=== PATIENT | female | born 1935 | race Caucasian/White ===

== ENCOUNTER 2019-08-08 15:47 | Inpatient (IN) | payer MEDICARE, OTHER ==
[~2019-08-08] VITALS: Ht 157.5 cm; Wt 65.6 kg
--- NOTE | 2019-08-08 15:58 | NUR ---
PT BIB [facility] FOR CHEST PRESSURE PROGRESSIVELY WORSENING OVER THE PAST WEEK. PT NOTICED IT WAS SIGNIFICANTLY WORSE YESTERDAY. PT WAS IN RAPID AFIB WITH A RATE OF 140S ON ARRIVAL, CONVERTED BACK TO A SINUS RHYTHM IN THE 80S AT 1550. PT CHANGED INTO GOWN, P/W/D, RESP WNL, CALL LIGHT IN LAP, NAD, DENIES ADDITIONAL NEEDS AT THIS TIME. WCTM.
--- NOTE | 2019-08-08 15:59 | NUR ---
PT ON MONITOR, CONVERSING WITH RN IN FULL SENTENCES NO SOB NOTED.
[2019-08-08] MEDS ORDERED: HYDR12.517 PO (16:04)
[2019-08-08] MEDS ORDERED: GLIPIZIDE PO (16:04)
[2019-08-08] MEDS ORDERED: ATEN50TA41 PO (16:04)
[2019-08-08 16:22] LABS: BASOPHILS # (AUTO) 0.02 x10^3/uL (0-0.1); BASOPHILS % (AUTO) 0 % (0-1); EOSINOPHILS % (AUTO) 1 % (1-7); LYMPHOCYTES # (AUTO) 1.39 x10^3/uL (1-3.4); LYMPHOCYTES % (AUTO) 16 % (22-44); MD NO; MEAN CORPUSCULAR HEMOGLOBIN 29.6 pg (27.0-34.8); MEAN CORPUSCULAR HGB CONC 33.8 g/dL (32.4-35.8); MEAN CORPUSCULAR VOLUME 87.8 fL (80-100); MEAN PLATELET VOLUME 8.2 fL (7.4-10.4); MONOCYTES # (AUTO) 0.75 x10^3/uL (0.2-0.8); MONOCYTES % (AUTO) 8 % (2-9); NEUTROPHILS # (AUTO) 6.69 x10^3/uL (1.8-6.8); NEUTROPHILS % (AUTO) 75 % (42-75); PLATELET COUNT 180 x10^3/uL (130-400); RED BLOOD COUNT 5.09 x10^6/uL (3.82-5.3); RED CELL DISTRIBUTION WIDTH 13.6 % (9.6-15.2)
[2019-08-08 16:34] LABS: ALBUMIN 3.5 g/dL (3.4-5.0); ANION GAP 9 mmol/L (5-15); CALCIUM 9.5 mg/dL (8.5-10.1); CHLORIDE 103 mmol/L (98-107); CREATININE 0.98 mg/dL (0.55-1.02)
[2019-08-08 16:49] LABS: TROPONIN I 0.381 ng/mL (0.000-0.045)
[2019-08-08] MEDS ORDERED: METOPROLOL TARTRATE 50 MG TAB ONE (17:25)
[2019-08-08] MEDS ORDERED: SODIUM CHLORIDE FLUSH 10ML SYR IVF ONE (17:30)
[2019-08-08] MEDS ORDERED: METOPROLOL TARTRATE 50 MG TAB PO ONE (17:30)
[2019-08-08] MEDS ORDERED: ENOXAPARIN 60 MG/0.6 ML SQ ONE (18:00)
[2019-08-08] MEDS ORDERED: ENOXAPARIN 60 MG/0.6 ML ONE (18:30)
[2019-08-08] MEDS ORDERED: DILTIAZEM 5 MG/ML, 5ML IVPush PRN (20:00)
[2019-08-08] MEDS ORDERED: ACETAMINOPHEN 325 MG TABLET PO PRN (20:00)
[2019-08-08] MEDS ORDERED: TRAZODONE 50MG TABLET PO PRN (20:00)
[2019-08-08] MEDS ORDERED: NITROGLYCERIN 0.4 MG BOTTLE (25 TABS) SL PRN (20:00)
[2019-08-08] MEDS ORDERED: LABETALOL 5MG/ML, 20ML IVPush PRN (20:00)
[2019-08-08] MEDS ORDERED: ONDANSETRON 2MG/ML, 2ML IVPush PRN (20:00)
[2019-08-08] MEDS ORDERED: morphine SULFATE 10 MG/ML, 1ML IV PRN (20:00)
[2019-08-08 20:05] VITALS: BP 130/71
[2019-08-08] MEDS ORDERED: ENOXAPARIN 60 MG/0.6 ML SQ SCH (20:30)
[2019-08-08] MEDS: INSULIN LISPRO 100 UNITS/ML, PEN SQ-INSULIN SCH (21:00)
[2019-08-08] MEDS: ATORVASTATIN 40 MG TABLET PO SCH (21:54)
[2019-08-08] MEDS ORDERED: MAGNESIUM SULFATE PMX 2GM/50ML 50 ML IV ONE (22:00)
[2019-08-08 22:28] VITALS: BP 130/71
[2019-08-09 00:18] VITALS: BP 155/66
[2019-08-09 05:57] LABS: BASOPHILS # (AUTO) 0.05 x10^3/uL (0-0.1); BASOPHILS % (AUTO) 1 % (0-1); EOSINOPHILS # (AUTO) 0.14 x10^3/uL (0-0.4); EOSINOPHILS % (AUTO) 2 % (1-7); LYMPHOCYTES # (AUTO) 1.82 x10^3/uL (1-3.4); LYMPHOCYTES % (AUTO) 22 % (22-44); MD NO; MEAN CORPUSCULAR HEMOGLOBIN 29.6 pg (27.0-34.8); MEAN CORPUSCULAR HGB CONC 33.5 g/dL (32.4-35.8); MEAN CORPUSCULAR VOLUME 88.2 fL (80-100); MEAN PLATELET VOLUME 8.3 fL (7.4-10.4); MONOCYTES # (AUTO) 0.87 x10^3/uL (0.2-0.8); MONOCYTES % (AUTO) 10 % (2-9); NEUTROPHILS % (AUTO) 66 % (42-75); PLATELET COUNT 170 x10^3/uL (130-400); RED CELL DISTRIBUTION WIDTH 14.2 % (9.6-15.2)
[2019-08-09] MEDS ORDERED: Enoxaparin 1 mg/kg protocol SQ SCH (06:00)
[2019-08-09] MEDS ORDERED: METOPROLOL TARTRATE 50 MG TAB PO SCH (06:00)
[2019-08-09 06:04] LABS: CHLORIDE 105 mmol/L (98-107)
[2019-08-09 06:13] LABS: ANION GAP 6 mmol/L (5-15); CALCIUM 9.1 mg/dL (8.5-10.1); CHOL/HDL RATIO 3.2; CHOLESTEROL, TOTAL 143 mg/dL (140-239); CREATININE 0.79 mg/dL (0.55-1.02); HDL CHOL % 31 % (28-40); HDL CHOLESTEROL (DIRECT) 45 mg/dL (40-60); LDL CHOLESTEROL,CALCULATED 51 mg/dL (54-169); LDL/HDL RATIO 1.1 (0.5-3.0); TRIGLYCERIDES 234 mg/dL (50-200); VLDL CHOLESTEROL 47 mg/dL (0-25)
[2019-08-09] MEDS: ASPIRIN 325 MG TABLET EC PO SCH (06:50)
[2019-08-09] MEDS: INSULIN LISPRO 100 UNITS/ML, PEN SQ-INSULIN SCH ×4 (07:00→21:00)
[2019-08-09 08:45] VITALS: BP 165/74
[2019-08-09] MEDS: ENOXAPARIN 60 MG/0.6 ML SQ SCH ×2 (08:46→21:00)
[2019-08-09 15:59] VITALS: BP 131/63
[2019-08-09] MEDS: METOPROLOL TARTRATE 50 MG TAB PO SCH (17:41)
[2019-08-09 20:02] VITALS: BP 150/75
[2019-08-09] MEDS: ATORVASTATIN 40 MG TABLET PO SCH (21:16)
[2019-08-10 02:05] VITALS: BP 151/70
[2019-08-10] MEDS: ASPIRIN 325 MG TABLET EC PO SCH (05:44)
[2019-08-10] MEDS: METOPROLOL TARTRATE 50 MG TAB PO SCH ×2 (05:44→18:00)
[2019-08-10] MEDS ORDERED: SODIUM CHLORIDE 0.9% 1,000 ML IV SCH (06:00)
[2019-08-10] MEDS: INSULIN LISPRO 100 UNITS/ML, PEN SQ-INSULIN SCH ×4 (07:00→20:38)
[2019-08-10 07:37] VITALS: BP 168/69
[2019-08-10] MEDS ORDERED: REGADENOSON 0.4 MG/5 ML SYRINGE ONE (08:33)
[2019-08-10] MEDS: ENOXAPARIN 60 MG/0.6 ML SQ SCH (11:08)
[2019-08-10 13:31] VITALS: BP 128/72
[2019-08-10 20:29] VITALS: BP 140/70
[2019-08-10] MEDS: ATORVASTATIN 40 MG TABLET PO SCH (20:37)
[2019-08-11] VITALS (7 sets, daily range): BP systolic 144–227; BP diastolic 69–111
[2019-08-11] MEDS: METOPROLOL TARTRATE 50 MG TAB PO SCH ×2 (05:47→18:13)
[2019-08-11] MEDS: INSULIN LISPRO 100 UNITS/ML, PEN SQ-INSULIN SCH ×4 (07:00→18:52)
[2019-08-11] MEDS: ASPIRIN 325 MG TABLET EC PO SCH (08:40)
[2019-08-11] MEDS ORDERED: VERAPAMIL 2.5 MG/ML, 2ML ONE (15:26)
[2019-08-11] MEDS ORDERED: HEPARIN 1,000 UNITS/ML, 10ML ONE (15:26)
[2019-08-11] MEDS ORDERED: FENTANYL PF 100 MCG/2ML ONE (15:26)
[2019-08-11] MEDS ORDERED: MIDAZOLAM 1 MG/ML, 5ML ONE (15:26)
[2019-08-11] MEDS ORDERED: BIVALIRUDIN 250 MG ONE (15:26)
[2019-08-11] MEDS ORDERED: TICAGRELOR 90 MG TABLET ONE (15:26)
[2019-08-11] MEDS ORDERED: LIDOCAINE-MPF 1%, 5ML ONE (15:26)
[2019-08-11] MEDS ORDERED: hydrALAzine 20 MG/ML, 1ML IV ONE (19:30)
[2019-08-11] MEDS ORDERED: BUTALB/APAP/CAFFEINE 50MG/325MG/40MG PO PRN (21:00)
[2019-08-11] MEDS ORDERED: hydrALAzine 20 MG/ML, 1ML IV PRN (22:30)
[2019-08-11] MEDS ORDERED: PROMETHAZINE 25 MG/ML, 1ML IM PRN (22:30)
[2019-08-11] MEDS: TICAGRELOR 90 MG TABLET PO SCH (23:37)
[2019-08-11] MEDS: ATORVASTATIN 40 MG TABLET PO SCH (23:37)
[2019-08-12 00:46] VITALS: BP 160/81
[2019-08-12 03:56] VITALS: BP 107/73
[2019-08-12] MEDS ORDERED: ASPIRIN 81 MG TABLET EC PO SCH (06:00)
[2019-08-12 06:02] LABS: ALBUMIN 3.5 g/dL (3.4-5.0); ANION GAP 9 mmol/L (5-15); CALCIUM 9.2 mg/dL (8.5-10.1); CHLORIDE 104 mmol/L (98-107)
[2019-08-12 06:05] LABS: ALANINE AMINOTRANSFERASE 78 U/L (12-78); ALKALINE PHOSPHATASE 79 U/L (45-117); BILIRUBIN,TOTAL 0.7 mg/dL (0.2-1.0); CREATININE 0.85 mg/dL (0.55-1.02); MEAN CORPUSCULAR HEMOGLOBIN 29.7 pg (27.0-34.8); MEAN CORPUSCULAR HGB CONC 33.9 g/dL (32.4-35.8); MEAN CORPUSCULAR VOLUME 87.6 fL (80-100); MEAN PLATELET VOLUME 8.3 fL (7.4-10.4); PLATELET COUNT 172 x10^3/uL (130-400); RED BLOOD COUNT 4.98 x10^6/uL (3.82-5.3); RED CELL DISTRIBUTION WIDTH 14.2 % (9.6-15.2); TOTAL PROTEIN 7.6 g/dL (6.4-8.2)
[2019-08-12 06:34] LABS: BASOPHILS # (AUTO) 0.02 x10^3/uL (0-0.1); BASOPHILS % (AUTO) 0 % (0-1); EOSINOPHILS % (AUTO) 0 % (1-7); LYMPHOCYTES # (AUTO) 0.52 x10^3/uL (1-3.4); LYMPHOCYTES % (AUTO) 5 % (22-44); MD SCAN; MONOCYTES # (AUTO) 0.24 x10^3/uL (0.2-0.8); MONOCYTES % (AUTO) 2 % (2-9); NEUTROPHILS # (AUTO) 10.24 x10^3/uL (1.8-6.8); NEUTROPHILS % (AUTO) 93 % (42-75)
[2019-08-12 07:01] VITALS: BP 149/73
[2019-08-12] MEDS: INSULIN LISPRO 100 UNITS/ML, PEN SQ-INSULIN SCH (09:26)
[2019-08-12] MEDS: METOPROLOL TARTRATE 50 MG TAB PO SCH (09:26)
[2019-08-12] MEDS: TICAGRELOR 90 MG TABLET PO SCH (09:26)
[2019-08-12] MEDS ORDERED: ASPI81TA45 PO (12:21)
[2019-08-12] MEDS ORDERED: TICA90TA PO (12:21)
[2019-08-12] MEDS ORDERED: ATOR40TA78 PO (13:11)
== END 2019-08-12 14:05 | disposition home or self-care (01) | DRG 247 ==
LOC: ED 17:38 → EDIP 17:53 → 5SO 20:06
PROVIDERS: ADMIT Family Medicine; ATTEND Family Medicine
PROC: 027034Z Dilation of Coronary Artery, One Artery with Drug-eluting Intraluminal Device, Percutaneous Approach (ICD-10-PCS; principal; 2019-08-11)
PROC: 4A023N7 Measurement of Cardiac Sampling and Pressure, Left Heart, Percutaneous Approach (ICD-10-PCS; 2019-08-11)
PROC: B2111ZZ Fluoroscopy of Multiple Coronary Arteries using Low Osmolar Contrast (ICD-10-PCS; 2019-08-11)
PROC: B2151ZZ Fluoroscopy of Left Heart using Low Osmolar Contrast (ICD-10-PCS; 2019-08-11)
DX: I21.4 Non-ST elevation (NSTEMI) myocardial infarction (principal); D68.69 Other thrombophilia; I50.30 Unspecified diastolic (congestive) heart failure; I11.0 Hypertensive heart disease with heart failure; E11.9 Type 2 diabetes mellitus without complications; E78.5 Hyperlipidemia, unspecified; I48.0 Paroxysmal atrial fibrillation; I44.7 Left bundle-branch block, unspecified; I25.110 Atherosclerotic heart disease of native coronary artery with unstable angina pectoris; K21.9 Gastro-esophageal reflux disease without esophagitis; Z87.891 Personal history of nicotine dependence; Z79.899 Other long term (current) drug therapy; Z79.84 Long term (current) use of oral hypoglycemic drugs; Z85.820 Personal history of malignant melanoma of skin
CPT/HCPCS: 36415; 71045; 78452; 80048; 80053; 80061; 82040; 82962; 83036; 83735; 84100; 84439; 84443; 84481; 84484; 85025; 93005; 93017; 93306; 93458; 96372; 96374; 99156; 99157; C1769; C9600; G0378; J0583; J1644; J1650; J2250; J2405; J2550; J2785; J3010; A9502; C1725; C1874; C1887; J0360; J1815; J3475; Q9967

== ENCOUNTER 2019-10-26 10:55 | Emergency (ER) | payer MEDICARE, OTHER ==
[~2019-10-26] VITALS: Ht 157.5 cm; Wt 60.7 kg
[~2019-10-26 10:55] MED LIST: ASPI81TA45 PO; ATEN50TA41 PO; ATOR40TA78 PO; GLIPIZIDE PO; HYDR12.517 PO; TICA90TA PO
--- NOTE | 2019-10-26 11:50 | NUR ---
PT C/O BLOOD IN STOOL x1 "half a cup" THIS AM. PT ON ELIQUIS AND BRILANTA NO ABD CRAMPING, NO HX OF SIMILIAR GOOD COLOR/VSS
--- NOTE | 2019-10-26 12:40 | NUR ---
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
[2019-10-26 12:50] LABS: BASOPHILS # (AUTO) 0.02 x10^3/uL (0-0.1); BASOPHILS % (AUTO) 0 % (0-1); EOSINOPHILS # (AUTO) 0.12 x10^3/uL (0-0.4); EOSINOPHILS % (AUTO) 1 % (1-7); LYMPHOCYTES % (AUTO) 12 % (22-44); MD NO; MEAN CORPUSCULAR HEMOGLOBIN 29.3 pg (27.0-34.8); MONOCYTES % (AUTO) 9 % (2-9); NEUTROPHILS # (AUTO) 7.08 x10^3/uL (1.8-6.8); NEUTROPHILS % (AUTO) 78 % (42-75); PLATELET COUNT 201 x10^3/uL (130-400); RED BLOOD COUNT 4.92 x10^6/uL (3.82-5.3); RED CELL DISTRIBUTION WIDTH 14.6 % (9.6-15.2)
[2019-10-26 12:59] LABS: ALANINE AMINOTRANSFERASE 31 U/L (12-78); ALBUMIN 3.5 g/dL (3.4-5.0); ANION GAP 6 mmol/L (5-15); CALCIUM 9.7 mg/dL (8.5-10.1); CHLORIDE 105 mmol/L (98-107); CREATININE 1.06 mg/dL (0.55-1.02)
[2019-10-26 13:01] LABS: ALKALINE PHOSPHATASE 91 U/L (45-117); BILIRUBIN,TOTAL 0.5 mg/dL (0.2-1.0); TOTAL PROTEIN 7.4 g/dL (6.4-8.2)
--- NOTE | 2019-10-26 13:03 | NUR ---
REPORT FROM KELTON BRITO. PT RECLINED IN BED WATCHING TELEVISION. NAD NOTED AT THIS TIME. RESPIRATIONS EVEN AND UNLABORED ON RA. PT DENIES PAIN AT THIS TIME. AWAITING REMAINDER OF LAB RESULTS.
--- NOTE | 2019-10-26 13:05 | NUR ---
Report to Myrna MELARA
[2019-10-26 13:06] LABS: INTERNATIONAL NORMALIZED RATIO 1.08 (0.93-1.1); PROTHROMBIN TIME 11.5 Seconds (9.6-11.5)
[2019-10-26] MEDS ORDERED: OMNIPAQUE 350 MG/ML, 100ML BOTTLE ONE (13:26)
--- NOTE | 2019-10-26 13:41 | NUR ---
ERMD IN TO DISCUSS DC WITH PT.
[2019-10-26 13:56] VITALS: BP 149/56
== END 2019-10-26 14:02 | disposition home or self-care (01) ==
LOC: ED 12:11
DX: K62.5 Hemorrhage of anus and rectum (principal); I48.91 Unspecified atrial fibrillation; Z87.891 Personal history of nicotine dependence
CPT/HCPCS: 36415; 74177; 80053; 85025; 85610; 99285; Q9967

== ENCOUNTER 2020-04-12 12:38 | Emergency (ER) | payer MEDICARE, OTHER ==
[~2020-04-12] VITALS: Ht 154.9 cm; Wt 61.5 kg
--- NOTE | 2020-04-12 12:46 | NUR ---
UNABLE TO GET TEMP IN TRIAGE, PT UNABLE TO HOLD BREATH WITH CLAMPED NOSE
[2020-04-12] MEDS ORDERED: TRANEXAMIC ACID 100 MG/ML, 10ML ONE (13:07)
[2020-04-12] MEDS ORDERED: OXYMETAZOLINE NASAL SPRAY 0.05%,30ML ONE (13:07)
[2020-04-12] MEDS ORDERED: TRANEXAMIC ACID 100 MG/ML, 10ML TP ONE (13:30)
[2020-04-12] MEDS ORDERED: OXYMETAZOLINE NASAL SPRAY 0.05%, 15ML NAS ONE (13:30)
[2020-04-12 14:56] VITALS: BP 155/82
--- NOTE | 2020-04-12 14:57 | NUR ---
Patient/Caregiver given discharge instructions and they have confirmed that they understand the instructions. Patient ambulatory with steady gait.
== END 2020-04-12 15:08 | disposition home or self-care (01) ==
LOC: ED 13:49
DX: R04.0 Epistaxis (principal); I10 Essential (primary) hypertension; E11.9 Type 2 diabetes mellitus without complications; E78.5 Hyperlipidemia, unspecified
CPT/HCPCS: 99282

== ENCOUNTER → 2020-05-22 | Outpatient (CLI) | payer MEDICARE ==
[2020-05-22 09:53] LABS: ALANINE AMINOTRANSFERASE 62 U/L (12-78); ALBUMIN 3.6 g/dL (3.4-5.0); ANION GAP 6 mmol/L (5-15); CALCIUM 9.7 mg/dL (8.5-10.1); CHLORIDE 105 mmol/L (98-107); CHOLESTEROL, TOTAL 209 mg/dL (140-239); CREATININE 0.93 mg/dL (0.55-1.02); MEAN CORPUSCULAR HEMOGLOBIN 29.8 pg (27.0-34.8); MEAN CORPUSCULAR HGB CONC 34.1 g/dL (32.4-35.8); MEAN PLATELET VOLUME 7.7 fL (7.4-10.4); PLATELET COUNT 213 x10^3/uL (130-400); RED BLOOD COUNT 5.08 x10^6/uL (3.82-5.3); RED CELL DISTRIBUTION WIDTH 14.7 % (9.6-15.2); TRIGLYCERIDES 133 mg/dL (50-200); VLDL CHOLESTEROL 27 mg/dL (0-25)
[2020-05-22 09:55] LABS: ALKALINE PHOSPHATASE 104 U/L (45-117); BILIRUBIN,TOTAL 0.5 mg/dL (0.2-1.0); CHOL/HDL RATIO 3.3; HDL CHOL % 31 % (28-40); HDL CHOLESTEROL (DIRECT) 64 mg/dL (40-60); LDL CHOLESTEROL,CALCULATED 118 mg/dL (54-169); LDL/HDL RATIO 1.8 (0.5-3.0); TOTAL PROTEIN 7.7 g/dL (6.4-8.2)
== END | disposition home or self-care (01) ==
LOC: LAB 09:25
PROVIDERS: ATTEND Internal Medicine Cardiovascular Disease
DX: I10 Essential (primary) hypertension (principal); E11.9 Type 2 diabetes mellitus without complications; E78.5 Hyperlipidemia, unspecified; I25.10 Atherosclerotic heart disease of native coronary artery without angina pectoris; I48.0 Paroxysmal atrial fibrillation
CPT/HCPCS: 36415; 80053; 80061; 85027

== ENCOUNTER 2020-08-02 08:47 | Day surgery (SDC) | payer MEDICARE, OTHER ==
[~2020-08-02] VITALS: Ht 154.9 cm; Wt 63.0 kg
[~2020-08-02 08:47] MED LIST changes: +APIX5TAB PO; +GLIM4TAB8 PO; +LOSA25TA25 PO; +LOSA50TA14 PO; +MULT-717 PO; +OMEP40CA42 PO; +ROSU40TA PO; +SITA25TA PO
[2020-08-02] MEDS ORDERED: SODIUM CHLORIDE 0.9% 1,000 ML IV ONE (10:00)
[2020-08-02 10:11] VITALS: BP 193/81
[2020-08-02] MEDS ORDERED: PROPOFOL 10 MG/ML, 20ML ONE ×2 (10:31)
== END 2020-08-02 12:21 | disposition home or self-care (01) ==
LOC: CACL 08:47
PROVIDERS: ATTEND Internal Medicine Cardiovascular Disease
DX: I48.0 Paroxysmal atrial fibrillation (principal); I25.10 Atherosclerotic heart disease of native coronary artery without angina pectoris; I34.0 Nonrheumatic mitral (valve) insufficiency; I70.0 Atherosclerosis of aorta; I25.2 Old myocardial infarction; I10 Essential (primary) hypertension; E11.9 Type 2 diabetes mellitus without complications; E78.5 Hyperlipidemia, unspecified; Z20.822 Contact with and (suspected) exposure to COVID-19; Z79.01 Long term (current) use of anticoagulants; Z79.82 Long term (current) use of aspirin; Z79.84 Long term (current) use of oral hypoglycemic drugs; Z79.899 Other long term (current) drug therapy; Z95.5 Presence of coronary angioplasty implant and graft
CPT/HCPCS: 93312; 93325; J2704; U0003

== ENCOUNTER → 2020-08-28 | Outpatient (CLI) | payer MEDICARE, OTHER ==
[2020-08-28 10:38] LABS: ALANINE AMINOTRANSFERASE 38 U/L (12-78); ALBUMIN 3.8 g/dL (3.4-5.0); ANION GAP 4 mmol/L (5-15); CALCIUM 9.4 mg/dL (8.5-10.1); CHLORIDE 104 mmol/L (98-107); CHOLESTEROL, TOTAL 159 mg/dL (140-239); CREATININE 0.94 mg/dL (0.55-1.02); TRIGLYCERIDES 77 mg/dL (50-200); VLDL CHOLESTEROL 15 mg/dL (0-25)
[2020-08-28 10:47] LABS: ALKALINE PHOSPHATASE 84 U/L (45-117); BILIRUBIN,TOTAL 0.5 mg/dL (0.2-1.0); CHOL/HDL RATIO 2.7; HDL CHOL % 38 % (28-40); HDL CHOLESTEROL (DIRECT) 60 mg/dL (40-60); LDL CHOLESTEROL,CALCULATED 84 mg/dL (54-169); LDL/HDL RATIO 1.4 (0.5-3.0); TOTAL PROTEIN 7.8 g/dL (6.4-8.2)
== END | disposition home or self-care (01) ==
LOC: LAB 10:04
PROVIDERS: ATTEND Family Medicine
DX: E11.9 Type 2 diabetes mellitus without complications (principal); I48.0 Paroxysmal atrial fibrillation; I10 Essential (primary) hypertension; E78.2 Mixed hyperlipidemia
CPT/HCPCS: 36415; 80053; 80061; 82043; 83036; 84443

== ENCOUNTER → 2020-09-05 | Outpatient (CLI) | payer MEDICARE, OTHER | END | disposition home or self-care (01) | LOC: CFH 10:29 | PROVIDERS: ATTEND Family Medicine | DX: M85.80 Other specified disorders of bone density and structure, unspecified site (principal); N95.9 Unspecified menopausal and perimenopausal disorder | CPT/HCPCS: 77080 ==

== ENCOUNTER → 2020-11-26 | Outpatient (CLI) | payer MEDICARE, OTHER ==
[~2020-11-26] MED LIST changes: +AMIO200T42 PO; +AMLO-150 PO; +ATEN25TA PO; +CLOP75TA52 PO; +DOXY100C2 PO; -OMEP40CA42 PO; +OMEP40CA8 PO; +POTA20TA6 PO
[2020-11-26 09:47] LABS: MEAN CORPUSCULAR HEMOGLOBIN 29.6 pg (27.0-34.8); MEAN CORPUSCULAR HGB CONC 33.7 g/dL (32.4-35.8); MEAN PLATELET VOLUME 6.8 fL (7.4-10.4); PLATELET COUNT 289 x10^3/uL (130-400); RED BLOOD COUNT 4.53 x10^6/uL (3.82-5.3); RED CELL DISTRIBUTION WIDTH 14.6 % (9.6-15.2)
[2020-11-26 09:50] LABS: ANION GAP 4 mmol/L (5-15); CALCIUM 9.2 mg/dL (8.5-10.1); CHLORIDE 105 mmol/L (98-107)
[2020-11-26 09:56] LABS: ALANINE AMINOTRANSFERASE 55 U/L (12-78); ALKALINE PHOSPHATASE 108 U/L (45-117); BILIRUBIN,TOTAL 0.5 mg/dL (0.2-1.0); CHOL/HDL RATIO 2.5; CHOLESTEROL, TOTAL 140 mg/dL (140-239); CREATININE 0.88 mg/dL (0.55-1.02); HDL CHOL % 39 % (28-40); HDL CHOLESTEROL (DIRECT) 55 mg/dL (40-60); LDL CHOLESTEROL,CALCULATED 70 mg/dL (54-169); LDL/HDL RATIO 1.3 (0.5-3.0); TOTAL PROTEIN 7.3 g/dL (6.4-8.2); TRIGLYCERIDES 77 mg/dL (50-200); VLDL CHOLESTEROL 15 mg/dL (0-25)
== END | disposition home or self-care (01) ==
LOC: LAB 09:22
PROVIDERS: ATTEND Internal Medicine Cardiovascular Disease
DX: I10 Essential (primary) hypertension (principal); E78.5 Hyperlipidemia, unspecified; I25.10 Atherosclerotic heart disease of native coronary artery without angina pectoris; I48.0 Paroxysmal atrial fibrillation
CPT/HCPCS: 36415; 80053; 80061; 85027